=== PATIENT | female | born 1960 | race African-American/Black ===

== ENCOUNTER 2019-03-20 09:29 | Emergency (ER) | payer OTHER ==
[2019-03-20 10:02] VITALS: BP 135/86; PULSE 95; TEMP 98.2; BMI 25.6
--- NOTE | 2019-03-20 10:40 | PDOC ---
History of Present Illness - General Chief Complaint: Pain Stated Complaint: VOMITING/ BACK PAIN Time Seen by Provider: 03/20/19 10:40 Past History - Past Medical History Allergies/Adverse Reactions: Allergies Allergy/AdvReac Type Severity Reaction Status Date / Time No Known Allergies Allergy Verified 03/20/19 10:02 COPD: No - Suicide/Smoking/Psychosocial Hx Smoking History: Never smoked Information on smoking cessation initiated: No Hx Alcohol Use: No Drug/Substance Use Hx: No *Physical Exam - Vital Signs Last Vital Signs Temp Pulse Resp BP Pulse Ox 98.2 F 95 H 18 135/86 97 03/20/19 10:00 03/20/19 10:00 03/20/19 10:00 03/20/19 10:00 03/20/19 10:00
[2019-03-20] MEDS ORDERED: LACTATED RINGERS SOLUTION 1000 ML INFUS.BAG IV ONE (11:13)
[2019-03-20] MEDS ORDERED: ONDANSETRON 4 MG/2 ML VIAL IVPB ONE (11:13)
[2019-03-20] MEDS ORDERED: PANTOPRAZOLE SODIUM 40 MG in SODIUM CHLORIDE 100 ML IVPB ONE (11:43)
[2019-03-20 11:47] LABS: BASO % 0.4 % (0-2.0); EOS % 0.4 % (0-4.5); HEMATOCRIT 46.4 % (32.4-45.2); HEMOGLOBIN 15.5 GM/dL (10.7-15.3); MCH 30.9 pg (25.7-33.7); MCHC 33.3 g/dl (32.0-36.0); MEAN CELL VOLUME 92.7 fl (80-96); MEAN PLT VOLUME 9.3 fl (7.5-11.1); MONO % 5.9 % (3.8-10.2); NEUT % 85.3 % (42.8-82.8); PLATELET COUNT 237 K/MM3 (134-434); RBC 5.01 M/mm3 (3.60-5.2); WHITE BLOOD COUNT 14.3 K/mm3 (4.0-10.0)
--- NOTE | 2019-03-20 11:47 | PDOC ---
Attending Attestation - Resident Resident Name: Tha Knight - ED Attending Attestation I have performed the following: I have examined & evaluated the patient, The case was reviewed & discussed with the resident, I agree w/resident's findings & plan, Exceptions are as noted - HPI HPI: 03/20/19 11:45 59 F with h/o SLE, HTN, DM, diverticulosis, presenting to ED with 1 day of LLQ pain and vomiting. Pt states that her symptoms started shortly after eating dinner last night. Pt states that she vomited everything she ate last night. This morning, pt continued to have nausea and vomiting. She reports constant, non-radiating pain in her LLQ. Denies CP/SOB. Denies F/C. Denies dysuria. Denies flank pain. - Physicial Exam PE: 03/20/19 11:46 "GENERAL: Awake, alert, and fully oriented, in no acute distress. HEAD: No signs of trauma EYES: PERRLA, EOMI, sclera anicteric, conjunctiva clear ENT: Auricles normal inspection, hearing grossly normal, nares patent, oropharynx clear without exudates. Moist mucosa NECK: Nontender, no stepoffs, Normal ROM, supple, no lymphadenopathy, JVD, or masses LUNGS: Breath sounds equal, clear to auscultation bilaterally. No wheezes, and no crackles HEART: Regular rate and rhythm, normal S1 and S2, no murmurs, rubs or gallops ABDOMEN: + LLQ TTP, normoactive bowel sounds. No guarding, no rebound. No masses EXTREMITIES: Normal range of motion, no edema. No clubbing or cyanosis. No cords, erythema, or tenderness NEUROLOGICAL: Cranial nerves II through XII intact. 5/5 strength and sensation in all extremities, Normal speech, normal gait, normal cerebellar function SKIN: Warm, Dry, normal turgor, no rashes or lesions noted. - Medical Decision Making 03/20/19 11:46 59 F with LLQ pain. Will evaluate for colitis vs diverticulitis. - Labs, UA - CTAP - IVF, GI cocktail 03/20/19 14:[address] unremarkable Pt is well appearing, with normal vitals. Clinically stable for DC at this time. I discussed the physical exam findings, ancillary test results and final diagnoses with the patient. I answered all of the patient's questions. The patient was satisfied with the care received and felt comfortable with the discharge plan and treatment plan. The patient agrees to follow up with the primary care physician within 24-72 hours.
[2019-03-20] MEDS ORDERED: ONDANSETRON 4 MG/2 ML VIAL ONE (11:50)
[2019-03-20] MEDS ORDERED: PANTOPRAZOLE SODIUM 40 MG/100 ML BAG IVPB ONE (11:59)
--- NOTE | 2019-03-20 12:01 | PDOC ---
History of Present Illness - General Chief Complaint: Pain Stated Complaint: VOMITING/ BACK PAIN Time Seen by Provider: 03/20/19 10:40 History Source: Patient, Family Exam Limitations: No Limitations - History of Present Illness Initial Comments: HPI: 59 y/o female presenting to [facility] ER complaining of three days of left lower quadrant abdominal pain with nausea/vomiting. Estimates seven episodes of clear nonbloody nonbilious emesis this morning. Pain radiates to bilateral lower back. No associated urinary symptoms. Episode started after eating at a [employer] restaurant Wednesday night. States she has a h/o similar episodes with various food related triggers. Has been treated symptomatically at other ED visits at home in [place]. H/o of diverticulitis. Last colonoscopy and EGD three months ago. Reportedly remarkable for benign polyps. Medical Hx: - Lupus, managed with Plaquenil and Benlysta (Belimumab) - Diabetes, managed with Lantus - multiple small CVAs - HTN - Bipolar, not medicated electively Surgical Hx: - Appendectomy Review of Systems: In addition to that documented in the HPI above, the additional ROS was obtained : Constitutional: Endorses chills. Denies fevers Head: Denies vision changes ENMT: Denies sore throat CV: Denies chest pain Resp: Denies SOB GI: Endorses vomiting. Denies diarrhea, last BM yesterday and described as normal. : Denies painful urination, hematuria, or increased urinary requency MSK: Denies recent trauma Skin: Denies new rashes Neuro: Denies new numbness or tingling or weakness Endocrine: Denies polyuria Heme: Denies bleeding or bruising Physical Examination: Constitutional: Well-developed, well-nourished adult female in no acute distress or obvious discomfort. Found supine on hospital bed. Transitioned from laying to sitting position multiple times during interview without obvious discomfort or difficulty. Answered all questions appropriately and completely. Speech was non-labored, non-pressured. Head: Normocephalic. No obvious external signs of trauma. Cardiovascular / Chest: Regular rate and regular rhythm. No murmur, rubs, clicks , or gallops. Peripheral pulses: radial pulses full. Respiratory: Breathing unlabored. Equal chest rise and fall. Clear to auscultation bilaterally. No stridor, no wheezing, no rhonchi. Gastrointestinal: abdomen is tender in LLQ without grimace, rebound, or guarding. Globally, abdomen is soft and non-distended. No hepatosplenemegaly. No pulsatile masses. No overlying skin lesions or obvious signs of trauma. Neuro: Alert and oriented. Moving all four extremities spontaneously. Skin: Warm, dry, and intact. No bruising, rashes, or other lesions. : No R or L CVA tenderness. Psych: Affect: appropriate. Mood: normal. MDM: *Reviewed vital signs, nursing notes, and prior visit documentation (if available). 59 y/o female with LLQ abd pain and nausea/vomiting x3 days. H/o of similar secondary to Lupus versus diverticulitis. Afebrile. Vitals unremarkable for hypotension or tachycardia. Physical exam as described above. No acute abdominal signs. Mild leukocytosis without left shift. No electrolyte derangement. CT scan revealed bilateral renal lesions suspected to be cystic. Low suspicion for relation to acute complaint. Encouraged pt to f/u urgently as outpatient. Symptoms improved with IVFB, Zofran, and Protonix. Repeat abd exam unremarkable for acute abd signs. Pt reports feeling better. Discussed close follow up. Provided copy of todays results. Prescribed short course of Zofran and Protonix. Tha Knight M.D., PGY2 Emergency Medicine Resident Past History - Past Medical History Allergies/Adverse Reactions: Allergies Allergy/AdvReac Type Severity Reaction Status Date / Time No Known Allergies Allergy Verified 03/20/19 10:02 Home Medications: Ambulatory Orders Amlodipine Besylate 10 mg PO DAILY 03/20/19 Carvedilol 03/20/19 Hydroxychloroquine Sulfate [Plaquenil] 200 mg PO BID 03/20/19 Insulin Glargine,Hum.rec.anlog [Lantus] 20 unit SQ DAILY 03/20/19 Liraglutide [Victoza -] 1.8 mg SQ DAILY@0700 03/20/19 Lisinopril 20 mg PO DAILY 03/20/19 Ondansetron [Zofran *Odt*] 8 mg SL TID PRN #15 od.tablet 03/20/19 Pantoprazole Sodium [Protonix -] 20 mg PO DAILY #7 tablet.ec 03/20/19 COPD: No - Suicide/Smoking/Psychosocial Hx Smoking History: Never smoked Information on smoking cessation initiated: No Hx Alcohol Use: No Drug/Substance Use Hx: No *Physical Exam - Vital Signs Last Vital Signs Temp Pulse Resp BP Pulse Ox 98.2 F 95 H 18 135/86 97 03/20/19 10:00 03/20/19 10:00 03/20/19 10:00 03/20/19 10:00 03/20/19 10:00 ED Treatment Course - LABORATORY CBC & Chemistry Diagram: 03/20/19 11:26 03/20/19 11:26 - ADDITIONAL ORDERS Additional order review: 03/20/19 11:26 RBC 5.01 MCV 92.7 MCHC 33.3 RDW 13.0 MPV 9.3 Neutrophils % 85.3 H Lymphocytes % 8.0 Monocytes % 5.9 Eosinophils % 0.4 Basophils % 0.4 - RADIOLOGY Radiology Studies Ordered: Category Date Time Status ABDOMEN & PELVIS CT WITH CONTR [CT] Stat CT Scan 03/20/19 11:42 Ordered - Medications Given in the ED: ED Medications Discontinued Medications Generic Name Dose Route Start Last Admin Trade Name Freq PRN Reason Stop Dose Admin Lactated Ringer's 1,000 ml 03/20/19 11:13 03/20/19 11:57 Lactated Ringers Solution IV 03/20/19 11:14 1,000 ml ONCE ONE Administration Ondansetron HCl 8 mg 03/20/19 11:13 03/20/19 11:57 Zofran Injection IVPB 03/20/19 11:14 8 mg ONCE ONE Administration *DC/Admit/Observation/Transfer Diagnosis at time of Disposition: Left lower quadrant abdominal pain Nausea & vomiting Qualifiers: Vomiting type: unspecified Vomiting Intractability: non-intractable Qualified Code(s): R11.2 - Nausea with vomiting, unspecified - Discharge Dispostion Disposition: HOME Condition at time of disposition: Improved Decision to Admit order: No - Prescriptions Prescriptions: Ondansetron [Zofran *Odt*] 8 mg SL TID PRN #15 od.tablet PRN Reason: Nausea/Vomiting Pantoprazole Sodium [Protonix -] 20 mg PO DAILY #7 tablet.ec - Referrals - Patient Instructions Printed Discharge Instructions: DI for Abdominal Pain-Adult Additional Instructions: You were seen today for nausea/vomiting with lower left quadrant abdominal pain. Your labs and CT scan did not show any emergent condition. Your symptoms may be from the food you ate this weekend. Your CT scan did show possible cysts on your kidneys. These are not likely to be the cause of your symptoms but you should have these checked by your primary care doctor. I have sent two prescriptions to [facility] in [place], [place]. The first is for Zofran. The second is for Protonix. Take as directed on the package inserts. Do not exceed the recommended dosages. Follow up with your primary care doctor within the next 2-3 days. You will need to call to make an appointment. The number is included in this packet. A copy of todays results are attached to this packet. Take it to the appointment so your doctor can review them. Go to the nearest emergency department if your condition worsens or you feel like you need additional emergency evaluation. Print Language: [place] - Post Discharge Activity Forms/Work/School Notes: Back to Work
[2019-03-20 12:13] LABS: MAGNESIUM 2.2 mg/dL (1.8-2.4); PHOSPHOROUS 3.2 mg/dL (2.5-4.9)
[2019-03-20 12:14] LABS: EPI CELLS 5.2 /HPF (0-5/HPF); HYALINE CASTS 23 /lpf (0-8); URINE APPEARANCE CLOUDY; URINE BILIRUBIN NEGATIVE (NEGATIVE); URINE COLOR YELLOW; URINE GLUCOSE (UA) NEGATIVE (NEGATIVE); URINE KETONE 1+ (NEGATIVE); URINE LEUK ESTERASE NEGATIVE (NEGATIVE); URINE NITRITE NEGATIVE (NEGATIVE); URINE PROTEIN 2+ (NEGATIVE); URINE RBC 1 /hpf (0-4); URINE WBC 4 /hpf (0-5)
[2019-03-20 12:18] LABS: ALBUMIN 3.8 g/dl (3.4-5.0); BILIRUBIN,TOTAL 0.7 mg/dL (0.2-1); BLOOD UREA NITROGEN 16.8 mg/dL (7-18); CALCIUM 9.1 mg/dL (8.5-10.1); CREATININE 0.8 mg/dL (0.55-1.3); POTASSIUM 3.9 mmol/L (3.5-5.1); TOT PROT 7.8 g/dl (6.4-8.2)
== END 2019-03-20 14:34 | disposition home or self-care (01) ==
LOC: JER 09:29
DX: R10.32 Left lower quadrant pain (principal); R11.2 Nausea with vomiting, unspecified; M32.9 Systemic lupus erythematosus, unspecified; I10 Essential (primary) hypertension; E11.9 Type 2 diabetes mellitus without complications; Z79.4 Long term (current) use of insulin; F31.9 Bipolar disorder, unspecified; Z86.73 Personal history of transient ischemic attack (TIA), and cerebral infarction without residual deficits; Z87.19 Personal history of other diseases of the digestive system
CPT/HCPCS: 36415; 74177-TC; 80053; 81003; 83605; 83690; 83735; 84100; 85025; 87077; 87086; 99283-25